=== PATIENT | female | born 1945 | race Caucasian/White ===

== ENCOUNTER → 2016-10-20 | Outpatient (CLI) | payer MEDICARE, MEDICAID ==
[~2016-10-20] MED LIST: BIOFREEZE89 ML TP; COMPAZINE10 MG PO; DEXAMETHASONE4 MG PO; DURAGESIC1 EAC2 TP; EMLA CREAM 2.5%5 GM TP; FEOSOL-DPS325 MG PO; FLEXERIL DPS5 MG PO; GAVISCON DPS1 TAB PO; HYDROCODONE 5MG/5 MG PO; IMODIUM DPS2 MG PO; KLONOPIN DPS1 MG PO; KLOR-CON M2020 ME1 PO; LOMOTIL-DPS1 TAB PO; LOPID DPS600 MG PO; LUBRICANT EYE15 M1 OU; MAALOX DPS30 ML PO; MAG-OX400 MG PO; MAGOX 400400 MG PO; MARYS PO; MEGACE DPS40 MG PO; METAMUCIL PACK3.4 GM PO; MICRO-K DPS10 MEQ PO; MIRALAX PACKET17 GM PO; MS CONTIN DPS15 MG PO; MSIR DPS15 MG PO; MYCOSTATIN PWD15 GM TP; NITRO BID TP; NORVASC5 MG PO; PAXIL DPS20 MG PO; PAXIL30 MG PO; PRILOSEC DPS20 MG PO; QUESTRAN DPS4 GM PO; REQUIP DPS2 MG PO; SEROQUEL DPS100 MG PO; SEROQUEL100 MG PO; SURFAK DPS240 MG PO; TUMS DPS500 MG PO; TUMS200 MG PO; TYLENOL DPS325 MG PO; ULTRAM DPS50 MG PO; VALIUM-DPS2 MG PO; VITAMIN D-32000 UNI1 PO; VITAMIN D2000 UNIT PO; VITAMIN D31000 UNIT PO; VOLTAREN 1% GE100 GM TP; WELLBUTRIN SR100 MG PO; WELLBUTRIN100 M1 PO; XANAX DPS0.25 MG PO; ZINC OXIDE28 GM TP; ZOFRAN4 MG PO
--- NOTE | ~2016-10-20 | ECH ---
Transthoracic Echocardiography Report (TTE) Demographics Patient Name KAMRON VALENZUELA Date of Study 10/20/2016 Patient Number [id number] Visit Number [id number] Date of 1945 Room Number Accession Number [id number] Gender Female Age 71 year(s) Referring Jr Guerrero MD Window And Door Installer Christina Pope [facility] Physician Physician Interpreting S[employer]ero [employer] Assembler Leather Goods Physician Supervising Ordering Physician Jr Guerrero MD, MD/MLP Nurse Stress Bobbin Sorter Conclusions Contractility Score Summary Normal Left Ventricular contractility was noted. Summary Technically good exam. The estimated left ventricular ejection fraction is 60-65%. Mild concentric left ventricular hypertrophy. Diastolic assessment reveals Grade I diastolic dysfunction. The left atrium is moderately dilated by LA volume index measurement. Trivial mitral regurgitation by color Doppler. The ascending aorta appears mildly dilated. The maximum diameter measures 3.4 cm. Procedure Type of Study TTE procedure:Echo Complete SF. Procedure Date Date: 10/20/2016 Start: 10:09 AM Technical Quality: Good visualization Indications:Murmur. Appropriate Use Criteria: 9 Height: 64 inches Weight: 142 pounds BSA: 1.69 m Rhythm: NSR HR: 72 bpm BP: 126/68 mmHg M-Mode/2D Measurements LV Diastolic Dimension: 4.26 cm LV Systolic Dimension: 2.64 cm LV Septum Diastolic: 0.98 cm LV PW Diastolic: 1.03 cm AO Root Dimension: 2.9 cm Cardiac Output: 6.04 l/min LA Dimension: 3.73 cm Cardiac Index: 3.57 l/min*m RV Diastolic Dimension: 3.37 cm LA volume index: 43 ml/m LVOT: 2.08 cm LVOT VTI: 24.71 cm RV Base: 3.2 cm LV Stroke volume: 83.92 ml RV Mid: 1.7 cm LV Stroke volume index: 49.66 ml/m TAPSE: 2.7 cm TDI-S': 14 cm/s Doppler Measurements AV Peak Velocity: 1.5 m/s MV Peak E-Wave: 0.83 m/s AV Peak Gradient: 9 mmHg MV Peak A-Wave: 1.34 m/s AV Mean Gradient: 5.8 mmHg MV E/A Ratio: 0.61 LVOT Peak Velocity: 1.32 m/s MV P1/2t: 89.7 msec AV Area (Continuity):2.93 cm MV Deceleration Time: 348.1 msec TR Velocity:2.16 m/s MV Area (PHT): 2.45 cm TR Gradient:18.66 mmHg PV Peak Velocity: 1.15 m/s Estimated RAP:5 mmHg PV Peak Gradient: 5.31 mmHg Estimated RVSP: 24 mmHg Estimated PASP: 23.66 mmHg E' Septal Velocity: 0.07 m/s A' Septal Velocity: 0.1 m/s E' Lateral Velocity: 0.07 m/s A' Lateral Velocity: 0.13 m/s RA Area: 13.74 cm Findings Left Ventricle The left ventricle is normal in size . Mild concentric left ventricular hypertrophy. Diastolic assessment reveals Grade I diastolic dysfunction. Right Ventricle Normal right ventricle structure and function. Left Atrium The left atrium is moderately dilated by LA volume index measurement. Right Atrium Normal right atrial size. Mitral Valve Mild mitral annular calcification. Trivial mitral regurgitation by color Doppler. Aortic Valve The aortic valve is mildly sclerotic. Tricuspid Valve Normal tricuspid valve structure and function. Mild tricuspid regurgitation by color Doppler. Normal pulmonary pressures. Pulmonic Valve Normal pulmonic valve structure and function. Pericardial Effusion No evidence of pericardial effusion. Miscellaneous The ascending aorta appears mildly dilated. The maximum diameter measures 3.4 cm. Pleural Effusion No evidence of pleural effusion. Contractility Score LV regional wall motion:(0-Non visualized 1-Normal 2-Hypokinesis 3-Akinesis 4-Dyskinesis 5-Aneurysm) Signature
== END | disposition home or self-care (01) ==
LOC: CARD 09:35
DX: R01.1 Cardiac murmur, unspecified (principal); I51.7 Cardiomegaly

== ENCOUNTER 2016-10-23 20:00 | Inpatient (IN) | payer MEDICARE, MEDICAID ==
[~2016-10-23] VITALS: Ht 162.6 cm; Wt 62.1 kg
[~2016-10-23 20:00] MED LIST changes: -BIOFREEZE89 ML TP; -DEXAMETHASONE4 MG PO; -DURAGESIC1 EAC2 TP; -EMLA CREAM 2.5%5 GM TP; -GAVISCON DPS1 TAB PO; -IMODIUM DPS2 MG PO; -LUBRICANT EYE15 M1 OU; -MAGOX 400400 MG PO; -MARYS PO; -MEGACE DPS40 MG PO; -MICRO-K DPS10 MEQ PO; -MS CONTIN DPS15 MG PO; -MSIR DPS15 MG PO; -MYCOSTATIN PWD15 GM TP; -NITRO BID TP; -SEROQUEL100 MG PO; -TUMS200 MG PO; -VITAMIN D2000 UNIT PO; -VOLTAREN 1% GE100 GM TP; -XANAX DPS0.25 MG PO; -ZINC OXIDE28 GM TP
--- NOTE | 2016-10-24 19:48 | ER ---
ADMIT: 10/23/2016 RM/LOC: 312 [facility] MR#: [id number] [address] [address] KAMRON VALENZUELA [address] [address] Emergency Room Report SEX: F AGE: 71 : 1945 DATE: 10/23/2016 TIME: 2000 hours. PRIMARY CARE: Actually in [place], Dr. Norris. Please refer to my T-sheet for complete H and P. HISTORY OF PRESENT ILLNESS: Briefly, the patient is a 71-year-old, who was transferred over from [place] for perforated bowel and what appears to be ischemic bowel. She is on a medication for her metastatic colon cancer that may be contributing to this. She has 10/10 pain, started this morning. They did a CAT scan workup there, transferred over here. PHYSICAL EXAMINATION: VITAL SIGNS: Her blood pressure is 115/46, pulse 76, respirations 14, temp 99.1, and sat 92%. GENERAL: She is in mild distress. HEENT: Grossly normal. LUNGS: Clear. HEART: Regular. ABDOMEN: Severely tender right lower quadrant, rebound, guarding, rigid. SKIN: No rash. EMERGENCY DEPARTMENT COURSE: I reviewed her labs, her CBC was normal except white count 17.25, hemoglobin 9.2. Chemistries normal except CO2 of 19.5. Those were drawn at the outside facility. CBC here was white count 13.8, hemoglobin 8.8, and platelets 342. EKG is sinus rhythm, rate 73, no changes. CT scan revealed pneumatosis, free air with multiple mets noted. At this point, I had talked to Dr. Gonzales, he was in to evaluate the patient directly, talked to her about surgery versus non-surgery. The indications and the risks and benefits of both. I then talked to Dr. Gong, he will be the primary admit to the ICU. I then talked to Dr. Jurado, pulmonary backpackers manager, he will also be involved. They have elected non-surgery after Dr. Gonzales and then ADMIT: 10/23/2016 RM/LOC: 312 [facility] MR#: [id number] [address] [address] KAMRON VALENZUELA [address] [place] [address] Emergency Room Report SEX: F AGE: 71 : 1945 discussed in depth. We started the whole sepsis pathway here including a fluid bolus, including the antibiotics which were started here, and she will be admitted to the ICU. ASSESSMENT: 1. Bowel perforation with ischemic bowel with multiple comorbidities including metastatic colon cancer, on medication. 2. Metastatic cancer. PLAN: Admit to the ICU. Critical care time was 60 minutes. Eran Caballero MD/ mary JOB #: [id number] CC: Kedar Gong MD, Attending Physician Kedar Gong MD, Family Physician
--- NOTE | 2016-10-26 08:29 | CO ---
ADMIT: 10/23/2016 RM/LOC: 312 [facility] MR#: [id number] [address] [address] DIANE VALENZUELA [address] [address] Consultation SEX: F AGE: 71 : 1945 DATE OF CONSULTATION: 10/23/2016 ATTENDING PHYSICIAN: Kedar Gong CONSULTING PHYSICIAN: Tito Gonzales MD HISTORY OF PRESENT ILLNESS: This is a 71-year-old female, seen in the emergency department with complaints of abdominal pain. Diane has complicated medical history with extensive tumor burden from metastatic colon cancer to her liver and lungs. She recently started Avastin therapy and received treatment on October 10. She started to have severe right lower quadrant abdominal pain this morning around 4:30. That gradually progressed prompting a visit to the ER in [place]. She was found on laboratory study to have a white blood cell count of 17,000 and peritoneal signs on exam. CT scan was performed, which demonstrated pneumatosis of the bowel and free air. She was transferred here for further management and discussion of management options. PAST MEDICAL HISTORY: 1. Metastatic colon cancer. 2. History of depression. 3. Hypertension. 4. Hyperlipidemia. PAST SURGICAL HISTORY: 1. Bowel resection for ischemia in 2014. 2. Colectomy. MEDICATIONS: Reviewed. Please see nursing notes for these details. ALLERGIES: REVIEWED. PLEASE SEE NURSING NOTES FOR THESE DETAILS. SOCIAL HISTORY: She is , and her and children are here with her. FAMILY HISTORY: Reviewed and noncontributory. REVIEW OF SYSTEMS: A 10-point review of systems was performed. She describes the pain. The oncologic history as described in the history of present illness. The remainder of the 10-point review of systems is otherwise negative for recent change. PHYSICAL EXAMINATION: GENERAL: Diane is alert currently and oriented to person, place, and time. Currently, she is afebrile. VITAL SIGNS: Blood pressure 120/76, pulse of 96, respiratory rate of 16, pulse oximetry currently of 96% on room air. NECK: Supple, without lymphadenopathy. LUNGS: Clear to auscultation bilaterally. HEART: Regular rate and rhythm. ABDOMEN: Tender to palpation diffusely and firm. She does have peritoneal ADMIT: 10/23/2016 RM/LOC: 312 [facility] MR#: [id number] [address] [address] DIANE VALENZUELA [address] [place] [address] Consultation SEX: F AGE: 71 : 1945 signs on exam. EXTREMITIES: Calves are soft bilaterally without tenderness. No peripheral edema currently. IMPRESSION: 1. Metastatic colon cancer with extreme tumor burden. 2. Likely ischemic bowel and free air secondary to recent Avastin treatment. PLAN: I had detailed discussion with Diane and her family tonight regarding the risks inherent to surgery after Avastin therapy. I discussed the likelihood of nonhealing of the potential surgical sites and necessity of performing an ostomy regardless of which portion of bowel were resected. Given her extreme tumor burden, she would be at high risk for mortality from perioperative complications. I discussed conservative measures. Otherwise with IV antibiotic therapy as well as asking palliative care to see her to make sure she can be comfortable. After our discussion of options, she does not wish to proceed with surgery. I discussed again that it might may very well mean that she will as a result of this complication from the Avastin. She understands that well. Tito Gonzales MD/ mary JOB #: [id number] CC: Kedar C Ramaekers, Attending Physician Kedar Gong, Family Physician
--- NOTE | 2016-10-26 11:08 | CO ---
ADMIT: 10/23/2016 RM/LOC: 417 [facility] MR#: [id number] [address] [address] DIANE VALENZUELA [address] [address] Consultation SEX: F AGE: 71 : 1945 DATE OF CONSULTATION: 10/24/2016 ATTENDING PHYSICIAN: Kedar Gong CONSULTING PHYSICIAN: Reyna Sullivan APRN TIME IN: 1050 hours. TIME OUT: 1130 hours. REASON FOR CONSULTATION: Supportive care consultation was requested by Dr. Gong for discussion of goals for care. HISTORY OF PRESENT ILLNESS: Diane is a 71-year-old female with a history of metastatic colon cancer. She was admitted on October [address] scan did reveal a bowel perforation. At this time, she has decided to forego surgery due to the high-risk nature of the operative procedure. She is receiving IV antibiotic therapy; however, it is prepared that she may decline quickly in the time ahead. Due to her complexity, supportive care consultation was requested to discuss goals for care. In terms of advanced directives, the patient is a do not resuscitate/do not intubate status. In terms of medical decision making, the patient's daughter, Attila Marquez whose phone is [phone]. Symptomatically, the patient reports overall she is fairly comfortable. She is on an IV STOVE FITTER for her abdominal pain and states that this is adequately controlling her pain for the time being. She does have a history of significant anxiety and normally takes Xanax at home. She is agreeable to me having IV antianxiety medication available as well as medication for delirium. She states that she easily gets confused in the hospital and delirious. PAST MEDICAL HISTORY: Metastatic colon cancer, depression, hypertension, hyperlipidemia, bowel resection for ischemia in 2014, and colectomy. ALLERGIES: THE PATIENT HAS NO KNOWN MEDICATION ALLERGIES. CURRENT MEDICATIONS: Please see the patient's MAR for specific routes and dosages. Her current medications are as follows: 1. Duragesic patch. 2. Wellbutrin. 3. Requip. 4. Seroquel. 5. Potassium chloride. 6. Nilstat solution. 7. Maalox. 8. Paxil. 9. Lovenox. 10.Protonix. ADMIT: 10/23/2016 RM/LOC: 417 [facility] MR#: [id number] [address] [address] DIANE VALENZUELA [address] [place] [address] Consultation SEX: F AGE: 71 : 1945 11.Vancomycin. 12.Nitro drip. 13.Surfak. 14.Tylenol. 15.Tums. 16.Compazine. 17.Natural tears. 18.Xanax. 19.Zosyn. 20.Benadryl. 21.Morphine STOVE FITTER. SOCIAL HISTORY: The patient is . She was at home prior to her admission. I do not know if she uses alcohol or tobacco. FAMILY HISTORY: Reviewed per chart and noncontributory. FUNCTIONAL REVIEW: Prior to her hospital stay, she was living in assisted living with her . She could perform all ADLs independently. Her palliative performance scale prior to admission was a 70%. Currently, she is in bed. She is requiring mainly assistance. Her intake is minimal. She is tired. Her current palliative performance scale is around 30%. REVIEW OF SYSTEMS: A 10-point review of systems was completed and other than those pertinent positives and negatives mentioned the HPI, it is negative. PHYSICAL EXAMINATION: GENERAL: The patient is examined in the bed. She is in no acute distress. VITAL SIGNS: Temperature 98.0, pulse 80, respirations 23, blood pressure 95/53, and oxygen 93% on room air. HEENT: Head is normocephalic. Pupils are equal, round, and reactive with a diameter of 3 mm bilaterally. Oral mucosa pink and moist with fair dentition. NECK: Supple. RESPIRATORY: Respirations are equal and nonlabored at rest. LUNGS: Diminished in the bases bilaterally. CARDIOVASCULAR: Rate and rhythm regular without murmurs, rubs, or gallops. GASTROINTESTINAL: Distended. Tender. Absent bowel sounds. MUSCULOSKELETAL: Generalized weakness. No obvious joint deformities. INTEGUMENTARY: Skin turgor is fair. No rashes or wounds noted. NEUROLOGIC: Alert and oriented x3. She will follow commands. PSYCHIATRIC: Calm and cooperative. No agitation or delirium noted. DIAGNOSTIC DATA: Sodium 141, potassium 3.8, BUN 10, creatinine 0.6, total protein 5.7, total protein 5.7, and albumin 2.2. WBCs 14.6, hemoglobin 8.3, hematocrit 26.0, and platelets are 351. IMPRESSION: 1. Debility. ADMIT: 10/23/2016 RM/LOC: 417 [facility] MR#: [id number] [address] [place] [address] DIANE VALENZUELA [address] [place] [address] Consultation SEX: F AGE: 71 : 1945 2. Fatigue. 3. Abdominal pain. 4. Malaise. 5. Anxiety. 6. History of delirium in the past. 7. Severe protein-calorie malnutrition. 8. Metastatic colon cancer. 9. Bowel perforation. 10.Palliative care. 11.The patient is a do not resuscitate/do not intubate. PLAN: 1. I was able to meet with the patient as well as her son and daughter-in- law at the bedside. We reviewed the patient's overall status and goals for the time ahead. She is aware of her bowel perforation, and she is prepared that she may in the near future. At this time, she directs ongoing current care including IV antibiotics and lab monitoring; however, if she declines, she states that she does not want to escalate care in terms of adding BiPAP or pressor support and wishes to instead transition to full comfort care. Her family is tearful, but accepting of her direction and is very supportive of the patient. 2. The patient is a DNR/DNI and she confirms this. 3. The patient is fine with me adding IV Haldol and Ativan in the event that she becomes anxious or starts getting some hospital delirium that she states that she is at high risk for this. I did clear this with Dr. Gong, who supports this as well. 4. We will continue to follow up in the days ahead. I will have the Supportive Care nurse follow up with the patient as CARDIOVASCULAR SPECIALIST is unavailable in the time ahead. We would like to thank Dr. Gong for the invitation to participate in this patient's care. Total consultation time was 40 minutes from 1050 hours to 1130 hours with 25 minutes from 1055 hours 1120 hours spent [id number] with the patient and her family discussing goals for care and providing care coordination and counseling. Reyna Sullivan, JOHNNY/ modl JOB #: [id number] CC: Kedar Gong, Attending Physician Kedar Gong, Family Physician
--- NOTE | 2016-11-07 18:36 | HP ---
ADMIT: 10/23/2016 RM/LOC: 417 [facility] MR#: [id number] 2620 [facility] [address] [place] [address] KAMRON VALENZUELA [address] [address] History and Physical SEX: F AGE: 71 : 1945 DATE OF SERVICE: CHIEF COMPLAINT: Abdominal pain. HISTORY OF PRESENT ILLNESS: The patient is a 71-year-old female, who has been through quite the journey with her metastatic colon cancer that we have been treating now for several years. Unfortunately, she recently had progressive disease and we had a long discussion about what options remain for her cancer treatment. We felt that one of her only remaining good options was to receive Irinotecan with Avastin. We talked at length about the potential risks including bowel perforation, blood clots, and bleeding. She agreed to take this therapy and started on 10/10/2016. She has received just one dose. Unfortunately, over the last 24 hours, she has had increasing abdominal pain that eventually led to an emergency room visit in [place] and was subsequently then transferred to our emergency room. She was found to have on CT scan evidence of a bowel perforation with pneumatosis coli. She is deemed to not be a surgical candidate given her goals of care, prognosis from her colon cancer, and her recent Avastin. She has also previously had quite the bowel resection for ischemic bowel, which would make this next surgery even more difficult. She has decided that she basically would want some aggressive medical care, but no heroic efforts. We are therefore admitting her for control of her symptoms and for close monitoring of her anticipated declining health over the upcoming days. Her pain is better with some morphine. She denies any nausea or vomiting. She is alert. Her review of systems is otherwise, quite negative. PAST MEDICAL HISTORY: 1. The patient has a long-standing history of colon cancer that has been treated with surgery and chemotherapy. 2. Depression. 3. Hypertension. 4. Hyperlipidemia. 5. Anxiety. 6. Bowel resection with colon ischemia. 7. History of hip and shoulder surgery. ALLERGIES: NO KNOWN DRUG ALLERGIES. MEDICATIONS: Reviewed in her chart. SOCIAL HISTORY: The patient is . She lives in assisted living. Currently in [place]. She is a nonsmoker. FAMILY HISTORY: She is not aware of any recurrent hereditary malignancies in the family. REVIEW OF SYSTEMS: See HPI. Otherwise, complete review of systems was obtained and was negative. ADMIT: 10/23/2016 RM/LOC: 417 [facility] MR#: [id number] [address] [address] KAMRON VALENZUELA [address] [place] [id number] History and Physical SEX: F AGE: 71 : 1945 PHYSICAL EXAMINATION: VITAL SIGNS: Temp 99, pulse 86, respirations 16, blood pressure 135/59. GENERAL: She really is in no acute distress and is quite comfortable. She is alert and oriented. HEENT: Mucous membranes are moist. No oral lesions are seen. Extraocular muscles are intact. Pupils are reactive and symmetrical. NECK: Without adenopathy or JVD. HEART: Regular rate and rhythm without murmur. LUNGS: Clear to auscultation bilaterally without any crackles or wheezes. ABDOMEN: Soft, but is mildly distended, and is quite tender to touch throughout. She does have some mild peritoneal signs. Positive bowel sounds are present.] EXTREMITIES: No edema, rashes, lesions or adenopathy is seen. LABORATORY DATA: White count 13.8, hemoglobin 8.8, platelets 342. Lactic acid is remarkably only 1.0. Complete metabolic panel is essentially unremarkable. Creatinine is 0.7. ASSESSMENT AND PLAN: 1. Bowel perforation, likely from her underlying Avastin and possibly from her malignancy. 2. Metastatic colon cancer with recent irinotecan and Avastin chemotherapy given on 10/10/2016. 3. Intractable pain. I talked with the patient and her family at great length today about her situation. Without surgical intervention, her likelihood of survival from this episode is very small. She looks however much better than expected clinically for her situation. I would favor giving her antibiotics and full medical support over the upcoming days. They are very aware that she has a high likelihood of in the next 3 to 4 days, but still would like aggressive care. She is requesting DNR/DNI, which we will honor. I am going to cover with Zosyn and vancomycin. I appreciate Surgery's input in her care. We will get supportive care team involved with her as well. Kedar Gong MD/ mary JOB #: [id number] CC: Kedar Gong, Attending Physician Kedar Gong, Family Physician
[2016-11-20] MEDS ORDERED: WELLBUTRIN SR100 MG PO (11:04)
[2016-11-20] MEDS ORDERED: GAVISCON DPS1 TAB PO (11:04)
[2016-11-20] MEDS ORDERED: XANAX DPS0.25 MG PO (11:04)
[2016-11-20] MEDS ORDERED: DEXAMETHASONE4 MG PO (11:05)
[2016-11-20] MEDS ORDERED: LOMOTIL-DPS1 TAB PO (11:05)
[2016-11-20] MEDS ORDERED: DURAGESIC1 EAC2 TP (11:06)
[2016-11-20] MEDS ORDERED: EMLA CREAM 2.5%5 GM TP (11:06)
[2016-11-20] MEDS ORDERED: LUBRICANT EYE15 M1 OU (11:07)
[2016-11-20] MEDS ORDERED: FEOSOL-DPS325 MG PO (11:07)
[2016-11-20] MEDS ORDERED: MAALOX DPS30 ML PO (11:07)
[2016-11-20] MEDS ORDERED: MAGOX 400400 MG PO (11:07)
[2016-11-20] MEDS ORDERED: IMODIUM DPS2 MG PO (11:07)
[2016-11-20] MEDS ORDERED: MARYS PO (11:08)
[2016-11-20] MEDS ORDERED: MSIR DPS15 MG PO (11:09)
[2016-11-20] MEDS ORDERED: MS CONTIN DPS15 MG PO (11:09)
[2016-11-20] MEDS ORDERED: MEGACE DPS40 MG PO (11:09)
[2016-11-20] MEDS ORDERED: NITRO BID TP (11:10)
[2016-11-20] MEDS ORDERED: MYCOSTATIN PWD15 GM TP (11:10)
[2016-11-20] MEDS ORDERED: PRILOSEC DPS20 MG PO (11:10)
[2016-11-20] MEDS ORDERED: PAXIL30 MG PO (11:10)
[2016-11-20] MEDS ORDERED: MICRO-K DPS10 MEQ PO (11:11)
[2016-11-20] MEDS ORDERED: SEROQUEL100 MG PO (11:11)
[2016-11-20] MEDS ORDERED: COMPAZINE10 MG PO (11:11)
[2016-11-20] MEDS ORDERED: MIRALAX PACKET17 GM PO (11:11)
[2016-11-20] MEDS ORDERED: TUMS200 MG PO (11:12)
[2016-11-20] MEDS ORDERED: BIOFREEZE89 ML TP (11:12)
[2016-11-20] MEDS ORDERED: REQUIP DPS2 MG PO (11:12)
[2016-11-20] MEDS ORDERED: ZINC OXIDE28 GM TP (11:13)
[2016-11-20] MEDS ORDERED: VOLTAREN 1% GE100 GM TP (11:13)
[2016-11-20] MEDS ORDERED: VITAMIN D2000 UNIT PO (11:13)
--- NOTE | 2016-12-23 07:52 | DS ---
ADMIT: 10/23/2016 RM/LOC: [address] [facility] MR#: [id number] [address] [place] [id number] KAMRON VALENZUELA [address] [address] Discharge Summary SEX: F AGE: 71 : 1945 ADMISSION DATE: 10/23/2016 DISCHARGE DATE: 11/11/2016 FINAL DIAGNOSES: 1. Bowel perforation. Treated with supportive care only as she was not a good surgical candidate on presentation. She remarkably recovered from this perforation and extensive pneumatosis and by the time of discharge, had resolution of her CT scan abnormalities. 2. Severe malnutrition. Supported with TPN. 3. Anemia due to cancer chemotherapy and her inflammatory condition. 4. Severe deconditioning number. 5. Metastatic colon cancer. 6. Urinary tract infection, treated with antibiotics to resolution. 7. Intractable pain treated with [employer]ESSION[employer]OR pump, numerous oral medications, and celiac nerve block. CONSULTATIONS: General Surgery, Interventional Radiology, and Supportive Care service. PROCEDURES: The patient had celiac nerve block but otherwise had no intervention is performed. HISTORY AND PHYSICAL: The patient is a 71-year-old female with metastatic colon cancer, who has recently been started on Avastin and irinotecan. She presented to the emergency room with severe acute abdominal pain and was found to have a bowel perforation that ultimately led to her admission. Please see original note for further details. HOSPITAL COURSE: The patient was admitted to the Oncology service actually with the intent of placing her on palliative and comfort care measures as she decided in the emergency room that she did not want to undergo any type of aggressive surgical interventions and the surgeon did not feel that this was likely going to be a successful intervention due to her Avastin, blood count ADMIT: 10/23/2016 RM/LOC: [address] [facility] MR#: [id number] [address] [facility] [address] [place], [place] [id number] KAMRON VALENZUELA [address] [place] [address] Discharge Summary SEX: F AGE: 71 : 1945 abnormalities, and overall performance status. We admitted her with the intent of just providing her with supportive medications until her anticipated fairly quick . She somehow remarkably made it through the 1st few days of her perforation and ultimately with repeat imaging was found to have resolution of her perforation and free air. She ultimately was wanting to be aggressive with her rehabilitation and was placed on TPN aggressive physical therapy intervention and pain management. Over the subsequent weeks, she was finally able to be discharged to the skilled facility in stable condition and no longer required any IV interventions. We plan to probably hold her chemotherapy indefinitely. She will have close followup in our clinic. Please see the hospital chart for further details on her discharge transfer medications and other details from her hospital stay. Kedar Gong MD/ mary JOB #: [id number] CC: Kedar Gong MD, Attending Physician Kedar Gong MD, Family Physician
== END 2016-11-11 10:00 | DRG 393 ==
LOC: ER 20:00 → 3ICU 21:20 → 4PCU 21:20 → 3ICU 10-24 08:31 → 4PCU 10-24 14:00
PROVIDERS: ADMIT Internal Medicine
PROC: 30233N1 Transfusion of Nonautologous Red Blood Cells into Peripheral Vein, Percutaneous Approach (ICD-10-PCS; 2016-10-29)
PROC: 3E0436Z Introduction of Nutritional Substance into Central Vein, Percutaneous Approach (ICD-10-PCS; 2016-10-30)
PROC: 3E0T3BZ Introduction of Anesthetic Agent into Peripheral Nerves and Plexi, Percutaneous Approach (ICD-10-PCS; principal; 2016-11-08)
PROC: 3E0T3TZ Introduction of Destructive Agent into Peripheral Nerves and Plexi, Percutaneous Approach (ICD-10-PCS; 2016-11-10)
DX: K63.1 Perforation of intestine (nontraumatic) (principal); E43 Unspecified severe protein-calorie malnutrition; C78.7 Secondary malignant neoplasm of liver and intrahepatic bile duct; C78.02 Secondary malignant neoplasm of left lung; C78.01 Secondary malignant neoplasm of right lung; N39.0 Urinary tract infection, site not specified; T45.1X5A Adverse effect of antineoplastic and immunosuppressive drugs, initial encounter; F32.9 Major depressive disorder, single episode, unspecified; F41.9 Anxiety disorder, unspecified; I10 Essential (primary) hypertension; E78.5 Hyperlipidemia, unspecified; Z85.038 Personal history of other malignant neoplasm of large intestine; Z66 Do not resuscitate

== ENCOUNTER 2016-11-04 08:13 | Inpatient (IN) | payer MEDICARE, MEDICAID ==
[~2016-11-04] VITALS: Ht 162.6 cm; Wt 62.2 kg
--- NOTE | 2016-11-12 18:35 | NUR ---
WITH 1700 ROUNDING- PT OFFERS C/O AUDIBLE WHEEZE WITH AMBULATION AND OCCASIONL PRODUCTIVE COUGH YELLOW/WHITE PHLEGM. VSS 98.2-68-21-126/59 LT (MAP 74) 94% R/A. LUNGS CLEAR/DIM. NOTIFIED VIA FAX.
--- NOTE | 2016-11-13 21:02 | NUR ---
11/12 & 11/13 patient up in room. Reminded to call for our assistance. Not cleared to be up in room Independently and on Narcotic pain meds.
--- NOTE | 2016-11-18 13:17 | NUR ---
PATIENT NOTE KAMRON HAS BEEN D/C BACK TO [facility] THIS A.M. HER FAMILY WAS HERE AND WENT TO THE 'S APPOINTMENT WITH HER AND THEN TRANSPORTED HER TO [place]. KAMRON REMAINS ALERT, ORIENTED AND VERY PLEASANT. SHE REMAINED INDEPENDENT WITH ALL TASKS OF DAILY LIVING. KMARON WAS MEDICARE SKILLED WITH [facility]. KAMRON DOES HAVE A DX. OF COLON CANCER WITH METS BUT WHAT BROUGHT HER TO [facility] WAS A PERFORATED BOWEL. KAMRON STATED,"NO ONE THOUGHT I WOULD PULL THROUGH THIS, BUT I DID." MY SOAKER HELPER AT [facility] WAS DEISI AT [phone], FAX #[phone]. [facility] WAS ORDERED AND KAMRON ASKED FOR DEAN. REFERRAL CALLED INTO JUAN AT [facility] AND ORDERS FAXED TO [phone].
[2016-11-20] MEDS ORDERED: WELLBUTRIN SR100 MG PO (11:04)
[2016-11-20] MEDS ORDERED: GAVISCON DPS1 TAB PO (11:04)
[2016-11-20] MEDS ORDERED: XANAX DPS0.25 MG PO (11:04)
[2016-11-20] MEDS ORDERED: LOMOTIL-DPS1 TAB PO (11:05)
[2016-11-20] MEDS ORDERED: DEXAMETHASONE4 MG PO (11:05)
[2016-11-20] MEDS ORDERED: DURAGESIC1 EAC2 TP (11:06)
[2016-11-20] MEDS ORDERED: EMLA CREAM 2.5%5 GM TP (11:06)
[2016-11-20] MEDS ORDERED: MAALOX DPS30 ML PO (11:07)
[2016-11-20] MEDS ORDERED: FEOSOL-DPS325 MG PO (11:07)
[2016-11-20] MEDS ORDERED: IMODIUM DPS2 MG PO (11:07)
[2016-11-20] MEDS ORDERED: LUBRICANT EYE15 M1 OU (11:07)
[2016-11-20] MEDS ORDERED: MAGOX 400400 MG PO (11:07)
[2016-11-20] MEDS ORDERED: MARYS PO (11:08)
[2016-11-20] MEDS ORDERED: MEGACE DPS40 MG PO (11:09)
[2016-11-20] MEDS ORDERED: MS CONTIN DPS15 MG PO (11:09)
[2016-11-20] MEDS ORDERED: MSIR DPS15 MG PO (11:09)
[2016-11-20] MEDS ORDERED: NITRO BID TP (11:10)
[2016-11-20] MEDS ORDERED: PRILOSEC DPS20 MG PO (11:10)
[2016-11-20] MEDS ORDERED: PAXIL30 MG PO (11:10)
[2016-11-20] MEDS ORDERED: MYCOSTATIN PWD15 GM TP (11:10)
[2016-11-20] MEDS ORDERED: COMPAZINE10 MG PO (11:11)
[2016-11-20] MEDS ORDERED: MIRALAX PACKET17 GM PO (11:11)
[2016-11-20] MEDS ORDERED: MICRO-K DPS10 MEQ PO (11:11)
[2016-11-20] MEDS ORDERED: SEROQUEL100 MG PO (11:11)
[2016-11-20] MEDS ORDERED: BIOFREEZE89 ML TP (11:12)
[2016-11-20] MEDS ORDERED: TUMS200 MG PO (11:12)
[2016-11-20] MEDS ORDERED: REQUIP DPS2 MG PO (11:12)
[2016-11-20] MEDS ORDERED: ZINC OXIDE28 GM TP (11:13)
[2016-11-20] MEDS ORDERED: VOLTAREN 1% GE100 GM TP (11:13)
[2016-11-20] MEDS ORDERED: VITAMIN D2000 UNIT PO (11:13)
== END 2016-11-18 11:53 | DRG 393 ==
LOC: SNU 11-11 10:13
PROVIDERS: ADMIT Internal Medicine
PROC: F08Z4ZZ Home Management Treatment (ICD-10-PCS; principal; 2016-11-11)
PROC: F07Z9ZZ Gait Training/Functional Ambulation Treatment (ICD-10-PCS; principal; 2016-11-11)
DX: K63.1 Perforation of intestine (nontraumatic) (principal); E43 Unspecified severe protein-calorie malnutrition; C78.7 Secondary malignant neoplasm of liver and intrahepatic bile duct; C78.02 Secondary malignant neoplasm of left lung; C78.01 Secondary malignant neoplasm of right lung; N39.0 Urinary tract infection, site not specified; B37.3 Candidiasis of vulva and vagina; F32.9 Major depressive disorder, single episode, unspecified; F41.9 Anxiety disorder, unspecified; I10 Essential (primary) hypertension; E78.5 Hyperlipidemia, unspecified; Z85.038 Personal history of other malignant neoplasm of large intestine; Z66 Do not resuscitate